=== PATIENT | female | born 1965 ===

== ENCOUNTER 2016-08-21 01:42 | Emergency (ER) | payer OTHER ==
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
--- NOTE | 2016-08-21 04:16 | ED ORDER SUMMARY ---
..... Patient: SEFERINO MARTINEZ OrderSheet [facility] VisitID: [id number] [place] [address] 51y, F Registration Date/Time: 08/21/2016 ORDER SHEET Weight: 123.3 kg (stated) Allergies: Oxycodone, Paxil, Chantix GENERAL ORDERS: Pulse oximeter (02:08/21/2016 JQuivey R.N. per protocol) (2:10 JQuivey R.N.) CBC w Diff Urgent (02:08/21/2016 JQuivey R.N. verbal order read back to Ari SOLOMON) (Ack 2:32 LMuller) (3:11 JQuivey R.N.) CMP Urgent (02:08/21/2016 JQuivey R.N. verbal order read back to Ari SOLOMON) (Ack 2:32 LMuller) (3:11 JQuivey R.N.) Amylase Urgent (02:08/21/2016 JQuivey R.N. verbal order read back to Ari SOLOMON) (Ack 2:32 LMuller) (3:12 JQuivey R.N.) Lipase Urgent (02:08/21/2016 JQuivey R.N. verbal order read back to Ari SOLOMON) (Ack 2:32 LMuller) (3:12 JQuivey R.N.) UA-Culture if indicated Urgent (02:08/21/2016 Ari SOLOMON) (Ack 2:32 LMuller) (3:12 JQuivey R.N.) CT Abd/Pel w Cont (No) (See report) Urgent (02:08/21/2016 Ari SOLOMON) (Ack 2:32 LMuller) (3:12 JQuivey R.N.) MEDICATION ORDERS: LET Topical 1 application (NOW) (03:31 08/21/2016 Ari SOLOMON) (3:33 JQuivey R.N.) Tdap IM 0.5 mL (NOW, per protocol) (03:53 08/21/2016 Ari SOLOMON) (Ack 3:53 RCollier R.N.) (3:58 Nash Lester) IV FLUIDS: IV Saline Lock (02:10 08/21/2016 Nash Lester per protocol) (2:10 Nash Lester) ORDER SHEET NOTES: [Electronically signed by Nolan Coles R.N. (04:30 08/21/2016)] [Electronically signed by Rodrigo Goodwin MD (10:34 08/25/2016)] [Electronically locked/signed by Nolan Coles R.N. (04:30 08/21/2016)]
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
--- NOTE | 2016-08-21 04:16 | ED ORDER SUMMARY ---
..... Patient: SEFERINO MARTINEZ OrderSheet [facility] VisitID: [id number] [place] [address] 51y, F Registration Date/Time: 08/21/2016 ORDER SHEET Weight: 123.3 kg (stated) Allergies: Oxycodone, Paxil, Chantix GENERAL ORDERS: Pulse oximeter (02:08/21/2016 JQuivey R.N. per protocol) (2:10 JQuivey R.N.) CBC w Diff Urgent (02:08/21/2016 JQuivey R.N. verbal order read back to Ari SOLOMON) (Ack 2:32 LMuller) (3:11 JQuivey R.N.) CMP Urgent (02:08/21/2016 JQuivey R.N. verbal order read back to Ari SOLOMON) (Ack 2:32 LMuller) (3:11 JQuivey R.N.) Amylase Urgent (02:08/21/2016 JQuivey R.N. verbal order read back to Ari SOLOMON) (Ack 2:32 LMuller) (3:12 JQuivey R.N.) Lipase Urgent (02:08/21/2016 JQuivey R.N. verbal order read back to Ari SOLOMON) (Ack 2:32 LMuller) (3:12 JQuivey R.N.) UA-Culture if indicated Urgent (02:08/21/2016 Ari SOLOMON) (Ack 2:32 LMuller) (3:12 JQuivey R.N.) CT Abd/Pel w Cont (No) (See report) Urgent (02:08/21/2016 Ari SOLOMON) (Ack 2:32 LMuller) (3:12 JQuivey R.N.) MEDICATION ORDERS: LET Topical 1 application (NOW) (03:31 08/21/2016 Ari SOLOMON) (3:33 JQuivey R.N.) Tdap IM 0.5 mL (NOW, per protocol) (03:53 08/21/2016 Ari SOLOMON) (Ack 3:53 RCollier R.N.) (3:58 Nash Lester) IV FLUIDS: IV Saline Lock (02:10 08/21/2016 Nash Lester per protocol) (2:10 Nash Lester) ORDER SHEET NOTES: [Electronically signed by Nolan Coles R.N. (04:30 08/21/2016)] [Electronically signed by Rodrigo Goodwin MD (10:34 08/25/2016)] [Electronically locked/signed by Nolan Coles R.N. (04:30 08/21/2016)]
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
--- NOTE | 2016-08-25 10:35 | ED DISCHARGE INSTRUCTIONS ---
Patient: SEFERINO MARTINEZ General Instructions [facility] VisitID: [id number] [place] [address] 51y, F Registration Date/Time: 08/21/2016 Single laceration to the abdomen. INSTRUCTIONS Warnings: TETANUS: You were given a tetanus shot during your visit. Make a note for future reference. GENERAL WARNINGS: Return or contact your physician immediately if your condition worsens or changes unexpectedly, if not improving as expected, or if other problems arise. Your Current Medications: CONTINUE TAKING THE FOLLOWING MEDICATIONS: QuiNINE Sulfate Oral : prn. Ranitidine HCl Oral : 300 mg at bedtime. Tums Oral. Follow-up: Follow up with your doctor as needed. Understanding of the discharge instructions verbalized by patient and family. ADDITIONAL INFORMATION Laceration (All Closures) Alaceration is a cut through the skin. This will usually require stitches (sutures) or britany if it is deep. Minor cuts may be treated with a surgical tape closure orskin glue. Home care The following guidelines will help you care for your laceration at home: Extremity, face, or trunk wounds Keep the wound clean and dry. If a bandage was applied and it becomes wet or dirty, replace it. Otherwise, leave it in place for the first 24 hours. If stitches or britany were used, clean the wound daily. After removing the bandage, wash the area with soap and water. Use a wet cotton swab to loosen and remove any blood or crust that forms. The doctor may prescribe an antibiotic cream or ointment to prevent infection. Do not stop taking this medication until you have finished the prescribed course or the doctor tells you to stop. The doctor may also prescribe medications for pain. Follow the doctors instructions for taking these medications. You may remove the bandage to shower as usual after the first 24 hours, but do not soak the area in water (no swimming) until the stitches or britany are removed. If surgical tape was used, keep the area clean and dry. If it becomes wet, blot it dry with a towel. If skin glue was used, do not scratch, rub, or pick at the adhesive film. Do not place tape directly over the film. Do not apply liquid, ointment, or creams to the wound while the film is in place. Do not clean the wound with peroxide and do not apply ointments. Avoid activities that cause heavy sweating until the film has fallen off. Protect the wound from prolonged exposure to sunlight or tanning lamps. You may shower as usual but do not soak the wound in water (no baths or swimming). The film will fall off by itself in 510 days. Scalp wounds During the first two days, you may carefully rinse your hair in the shower to remove blood, glass or dirt particles. After two days, you may shower and shampoo your hair normally. Do not soak your scalp in the tub or go swimming until the stitches or britany have been removed. Talk with your doctor before applying any antibiotic ointment to the wound. Mouth wounds Eat soft foods to reduce pain. If the cut is inside of your mouth, clean by rinsing after each meal and at bedtime with a mixture of equal parts water and hydrogen peroxide (do not swallow!). Or, you can use a cotton swab to directly apply hydrogen peroxide onto the cut. Mouth wounds can be painful when eating. You may use an [id number] local numbing solution for pain relief. If this is not available, you may use any numbing solution for teething babies. You may apply this directly to the sores with a cotton-tip swab or with your finger. Follow-up care Follow up with your health care provider. Most skin wounds heal within ten days. Mouth and facial wounds heal within five days. However, even with proper treatment, a wound infection may sometimes occur. Therefore, you should check the wound daily for signs of infection listed below. Stitches should be removed from the face within five days; stitches and britany should be removed from other parts of the body within 714 days. If dissolving stitches were used in the mouth, these will fall out or dissolve without the need for removal. If tape closures were used, remove them yourself if they have not fallen off after 7 days. Ifskin glue was used, the film will fall off by itself in 510 days. When to seek medical care Get prompt medical attention if any of these occur: Bleeding not controlled by direct pressure Signs of infection, including increasing pain in the wound, increasing wound redness or swelling, or pus coming from the wound Fever of 100.4F (38C) or higher, or as directed by your health care provider Stitches or britany come apart or fall out or surgical tape falls off before 7 days Wound edges re-open Diphtheria Toxoid Adsorbed, Pertussis Vaccine, Acellular (Adsorbed), Tetanus Toxoid, Adsorbed Suspension for injection What is this medicine? DIPHTHERIA and TETANUS TOXOIDS; PERTUSSIS VACCINE (dif THEER ee uh and TET n us TOK soids; per TUS iss vak SEEN) is used to prevent diphtheria, tetanus, and pertussis infections. How should I use this medicine? This vaccine is for injection into a muscle. It is given by a health acute care clinical nurse specialist. A copy of Vaccine Information Statements will be given before each vaccination. Read this sheet carefully each time. The sheet may change frequently. Talk to your topper press operator automatic regarding the use of this vaccine in children. While the DTP vaccine may be given to children ages 6 weeks to 7 years and the Tdap vaccine may be given to children at least 10 years old, precautions do apply. What side effects may I notice from receiving this medicine? Side effects that you should report to your doctor or health acute care clinical nurse specialist as soon as possible: allergic reactions like skin rash, itching or hives, swelling of the face, lips, or tongue breathing problems fever of 103 degrees F or more flu-like symptoms inconsolable crying infection pain, tingling, numbness in the hands or feet seizures swelling of arm or leg that was injected unusually weak or tired Side effects that usually do not require immediate medical attention (report these side effects to your doctor or health acute care clinical nurse specialist if they continue or are bothersome): fussy, irritable loss of appetite fever of 102 degrees F or less pain, tenderness, redness, swelling, or a 'knot' at site where injected vomiting What may interact with this medicine? immune globulin medicines that suppress your immune function like adalimumab, anakinra, infliximab medicines to treat cancer medicines that treat or prevent blood clots like warfarin, enoxaparin, and dalteparin steroid medicines like prednisone or cortisone What if I miss a dose? It is important not to miss your dose. Call your doctor or health acute care clinical nurse specialist if you are unable to keep an appointment. Where should I keep my medicine? This drug is given in a hospital or clinic and will not be stored at home. What should I tell my health care provider before I take this medicine? They need to know if you have any of these conditions: blood disorders like hemophilia fever or infection immune system problems neurologic disease seizures an unusual or allergic reaction to vaccines, thimerosal, latex, other medicines, foods, dyes, or preservatives or trying to get breast-feeding What should I watch for while using this medicine? See your health care provider for all shots of this vaccine as directed. To have protection from infection, you must have 3 shots of this vaccine plus boosters as needed. Tell your doctor right away if you have any serious or unusual side effects after getting this vaccine. You have been given the following additional information: Laceration, All Diphtheria Toxoid Adsorbed, Pertussis Vaccine, Acellular (Adsorbed), Tetanus Toxoid, Adsorbed Suspension for injection (Electronically signed by Rodrigo Goodwin MD 08/25/2016 10:34)
--- NOTE | 2016-08-25 10:35 | ED MAR SUMMARY ---
..... Medication Administration Record [facility] [address] [place] [address] Patient: SEFERINO MARTINEZ Visit ID: [id number] 51y, F Weight: 123.3 kg Height/Length: 66 in BMI: 43.9 ALLERGIES: Chantix, Paxil, Oxycodone Given 03:33 08/21/2016 Nolan Coles, R.N. Medication Administered: LET [TOPICAL], Dose: 1 application Topical. Medication Ordered: LET Topical 1 application (NOW). Given 03:58 08/21/2016 Nolan oCles, R.N. Medication Administered: TDAP [IM], Dose: 0.5 mL IM. Medication Ordered: Tdap IM 0.5 mL (NOW, per protocol).
--- NOTE | 2016-08-25 10:35 | ED MED RECONCILIATION SUMMARY ---
Patient: SEFERINO MARTINEZ Medication Reconciliation Report [facility] VisitID: [id number] [address] [place] [address] 51y, F Registration Date/Time: 08/21/2016 Weight: 123.3 kg Height/Length: 66 in. BMI: 43.9 ALLERGIES: Chantix, Oxycodone, Paxil The patient's Home Medications are listed below: CONTINUE TAKING THE FOLLOWING MEDICATIONS: QuiNINE Sulfate Oral Ranitidine HCl Oral 300 mg, at bedtime Tums Oral The source(s) of the original Home Medication information: patient The following Medications were given to the patient in the Emergency Department: LET [Topical] Topical 1 application, administered: 08/21/2016 3:33:00 AM TDAP [IM] IM 0.5 mL, administered: 08/21/2016 3:58:00 AM The following Medications were prescribed to the patient: None.
--- NOTE | 2016-08-25 10:35 | ED DISCHARGE INSTRUCTIONS ---
Patient: SEFERINO MARTINEZ General Instructions [facility] VisitID: [id number] [place] [address] 51y, F Registration Date/Time: 08/21/2016 Single laceration to the abdomen. INSTRUCTIONS Warnings: TETANUS: You were given a tetanus shot during your visit. Make a note for future reference. GENERAL WARNINGS: Return or contact your physician immediately if your condition worsens or changes unexpectedly, if not improving as expected, or if other problems arise. Your Current Medications: CONTINUE TAKING THE FOLLOWING MEDICATIONS: QuiNINE Sulfate Oral : prn. Ranitidine HCl Oral : 300 mg at bedtime. Tums Oral. Follow-up: Follow up with your doctor as needed. Understanding of the discharge instructions verbalized by patient and family. ADDITIONAL INFORMATION Laceration (All Closures) Alaceration is a cut through the skin. This will usually require stitches (sutures) or britany if it is deep. Minor cuts may be treated with a surgical tape closure orskin glue. Home care The following guidelines will help you care for your laceration at home: Extremity, face, or trunk wounds Keep the wound clean and dry. If a bandage was applied and it becomes wet or dirty, replace it. Otherwise, leave it in place for the first 24 hours. If stitches or britany were used, clean the wound daily. After removing the bandage, wash the area with soap and water. Use a wet cotton swab to loosen and remove any blood or crust that forms. The doctor may prescribe an antibiotic cream or ointment to prevent infection. Do not stop taking this medication until you have finished the prescribed course or the doctor tells you to stop. The doctor may also prescribe medications for pain. Follow the doctors instructions for taking these medications. You may remove the bandage to shower as usual after the first 24 hours, but do not soak the area in water (no swimming) until the stitches or britany are removed. If surgical tape was used, keep the area clean and dry. If it becomes wet, blot it dry with a towel. If skin glue was used, do not scratch, rub, or pick at the adhesive film. Do not place tape directly over the film. Do not apply liquid, ointment, or creams to the wound while the film is in place. Do not clean the wound with peroxide and do not apply ointments. Avoid activities that cause heavy sweating until the film has fallen off. Protect the wound from prolonged exposure to sunlight or tanning lamps. You may shower as usual but do not soak the wound in water (no baths or swimming). The film will fall off by itself in 510 days. Scalp wounds During the first two days, you may carefully rinse your hair in the shower to remove blood, glass or dirt particles. After two days, you may shower and shampoo your hair normally. Do not soak your scalp in the tub or go swimming until the stitches or britany have been removed. Talk with your doctor before applying any antibiotic ointment to the wound. Mouth wounds Eat soft foods to reduce pain. If the cut is inside of your mouth, clean by rinsing after each meal and at bedtime with a mixture of equal parts water and hydrogen peroxide (do not swallow!). Or, you can use a cotton swab to directly apply hydrogen peroxide onto the cut. Mouth wounds can be painful when eating. You may use an lopl-hwj-eissvyj local numbing solution for pain relief. If this is not available, you may use any numbing solution for teething babies. You may apply this directly to the sores with a cotton-tip swab or with your finger. Follow-up care Follow up with your health care provider. Most skin wounds heal within ten days. Mouth and facial wounds heal within five days. However, even with proper treatment, a wound infection may sometimes occur. Therefore, you should check the wound daily for signs of infection listed below. Stitches should be removed from the face within five days; stitches and britany should be removed from other parts of the body within 714 days. If dissolving stitches were used in the mouth, these will fall out or dissolve without the need for removal. If tape closures were used, remove them yourself if they have not fallen off after 7 days. Ifskin glue was used, the film will fall off by itself in 510 days. When to seek medical care Get prompt medical attention if any of these occur: Bleeding not controlled by direct pressure Signs of infection, including increasing pain in the wound, increasing wound redness or swelling, or pus coming from the wound Fever of 100.4F (38C) or higher, or as directed by your health care provider Stitches or britany come apart or fall out or surgical tape falls off before 7 days Wound edges re-open Diphtheria Toxoid Adsorbed, Pertussis Vaccine, Acellular (Adsorbed), Tetanus Toxoid, Adsorbed Suspension for injection What is this medicine? DIPHTHERIA and TETANUS TOXOIDS; PERTUSSIS VACCINE (dif THEER ee uh and TET n us TOK soids; per TUS iss vak SEEN) is used to prevent diphtheria, tetanus, and pertussis infections. How should I use this medicine? This vaccine is for injection into a muscle. It is given by a health acute care nursing assistant. A copy of Vaccine Information Statements will be given before each vaccination. Read this sheet carefully each time. The sheet may change frequently. Talk to your pan washer regarding the use of this vaccine in children. While the DTP vaccine may be given to children ages 6 weeks to 7 years and the Tdap vaccine may be given to children at least 10 years old, precautions do apply. What side effects may I notice from receiving this medicine? Side effects that you should report to your doctor or health acute care nursing assistant as soon as possible: allergic reactions like skin rash, itching or hives, swelling of the face, lips, or tongue breathing problems fever of 103 degrees F or more flu-like symptoms inconsolable crying infection pain, tingling, numbness in the hands or feet seizures swelling of arm or leg that was injected unusually weak or tired Side effects that usually do not require immediate medical attention (report these side effects to your doctor or health acute care nursing assistant if they continue or are bothersome): fussy, irritable loss of appetite fever of 102 degrees F or less pain, tenderness, redness, swelling, or a 'knot' at site where injected vomiting What may interact with this medicine? immune globulin medicines that suppress your immune function like adalimumab, anakinra, infliximab medicines to treat cancer medicines that treat or prevent blood clots like warfarin, enoxaparin, and dalteparin steroid medicines like prednisone or cortisone What if I miss a dose? It is important not to miss your dose. Call your doctor or health acute care nursing assistant if you are unable to keep an appointment. Where should I keep my medicine? This drug is given in a hospital or clinic and will not be stored at home. What should I tell my health care provider before I take this medicine? They need to know if you have any of these conditions: blood disorders like hemophilia fever or infection immune system problems neurologic disease seizures an unusual or allergic reaction to vaccines, thimerosal, latex, other medicines, foods, dyes, or preservatives or trying to get breast-feeding What should I watch for while using this medicine? See your health care provider for all shots of this vaccine as directed. To have protection from infection, you must have 3 shots of this vaccine plus boosters as needed. Tell your doctor right away if you have any serious or unusual side effects after getting this vaccine. You have been given the following additional information: Laceration, All Diphtheria Toxoid Adsorbed, Pertussis Vaccine, Acellular (Adsorbed), Tetanus Toxoid, Adsorbed Suspension for injection (Electronically signed by Rodrigo Goodwin MD 08/25/2016 10:34)
--- NOTE | 2016-08-25 10:35 | ED MAR SUMMARY ---
..... Medication Administration Record [facility] [address] [place] [address] Patient: SEFERINO MARTINEZ Visit ID: [id number] 51y, F Weight: 123.3 kg Height/Length: 66 in BMI: 43.9 ALLERGIES: Chantix, Paxil, Oxycodone Given 03:33 08/21/2016 Nolan Coles, R.N. Medication Administered: LET [TOPICAL], Dose: 1 application Topical. Medication Ordered: LET Topical 1 application (NOW). Given 03:58 08/21/2016 Nolan Coles, R.N. Medication Administered: TDAP [IM], Dose: 0.5 mL IM. Medication Ordered: Tdap IM 0.5 mL (NOW, per protocol).
--- NOTE | 2016-08-25 10:35 | ED MED RECONCILIATION SUMMARY ---
Patient: SEFERINO MARTINEZ Medication Reconciliation Report [facility] VisitID: [id number] [address] [place] [address] 51y, F Registration Date/Time: 08/21/2016 Weight: 123.3 kg Height/Length: 66 in. BMI: 43.9 ALLERGIES: Chantix, Oxycodone, Paxil The patient's Home Medications are listed below: CONTINUE TAKING THE FOLLOWING MEDICATIONS: QuiNINE Sulfate Oral Ranitidine HCl Oral 300 mg, at bedtime Tums Oral The source(s) of the original Home Medication information: patient The following Medications were given to the patient in the Emergency Department: LET [Topical] Topical 1 application, administered: 08/21/2016 3:33:00 AM TDAP [IM] IM 0.5 mL, administered: 08/21/2016 3:58:00 AM The following Medications were prescribed to the patient: None.
== END 2016-08-21 04:23 | disposition home or self-care (01) ==
LOC: ED SRH 01:42
DX: S31.119A Laceration without foreign body of abdominal wall, unspecified quadrant without penetration into peritoneal cavity, initial encounter (principal); W26.0XXA Contact with knife, initial encounter; Y93.89 Activity, other specified; Y99.9 Unspecified external cause status; Y92.009 Unspecified place in unspecified non-institutional (private) residence as the place of occurrence of the external cause; N39.0 Urinary tract infection, site not specified; E78.00 Pure hypercholesterolemia, unspecified; K21.9 Gastro-esophageal reflux disease without esophagitis; Z79.899 Other long term (current) drug therapy; Z88.5 Allergy status to narcotic agent; Z88.8 Allergy status to other drugs, medicaments and biological substances
CPT/HCPCS: 82708; 90004; 90100; 90469; 92235; 92530; 95059